=== PATIENT | male | born 1985 | race Two or more races ===

== ENCOUNTER 2022-05-08 15:22 | Emergency (ER) | payer SELFPAY ==
[~2022-05-08] VITALS: Ht 162.6 cm; Wt 57.6 kg
[2022-05-08 15:35] VITALS: BP 117/72
[2022-05-08] MEDS ORDERED: TETANUS-DIPTH-ACEL PERTUSSIS 0.5ML SYR Tdap IM ONE (16:00)
== END 2022-05-08 16:07 | disposition home or self-care (01) ==
LOC: ER 15:22
DX: S30.810A Abrasion of lower back and pelvis, initial encounter (principal); W54.0XXA Bitten by dog, initial encounter; Y93.89 Activity, other specified; Y92.89 Other specified places as the place of occurrence of the external cause; Y99.8 Other external cause status
CPT/HCPCS: 90471; 90715